=== PATIENT | female | born 1975 | race Caucasian/White ===

== ENCOUNTER 2017-09-04 17:29 | Emergency (ER) | payer OTHER ==
[2017-09-04] MEDS: DEXAMETHASONE 10 MG/ML 1 ML INJ IM (19:27)
[2017-09-04] MEDS: ALBUTEROL 0.083% (NEB) 2.5 MG/3 ML AMP NEB (19:34)
[2017-09-04] MEDS: IPRATROPIUM (NEB) 0.5 MG/2.5 ML AMP INH (21:29)
[2017-09-04] MEDS: ALBUTEROL 0.5% (NEB) 2.5 MG/0.5 ML AMP INH (21:29)
== END 2017-09-04 23:09 | disposition home or self-care (01) ==
LOC: FTE 17:29
DX: J20.9 Acute bronchitis, unspecified (principal)
CPT/HCPCS: 71045; 94644; 94664; 96372; 99284-25

== ENCOUNTER 2017-09-25 16:35 | Emergency (ER) | payer OTHER ==
[2017-09-25] MEDS: DIPHTH/TET/ACEL PERTUSS (ADULT) 0.5 ML VIAL IM* (20:03)
[2017-09-25] MEDS ORDERED: LIDOCAINE 1% (MDV) 20 ML INJ SC (20:30)
[2017-09-25] MEDS: LIDOCAINE 1% (MDV) 10 ML INJ INJ (20:33)
[2017-09-25] MEDS: IBUPROFEN 600 MG TAB PO (20:33)
== END 2017-09-25 20:50 | disposition home or self-care (01) ==
LOC: FTE 16:35
DX: S61.012A Laceration without foreign body of left thumb without damage to nail, initial encounter (principal); W26.8XXA Contact with other sharp object(s), not elsewhere classified, initial encounter; Y92.9 Unspecified place or not applicable; Z23 Encounter for immunization
CPT/HCPCS: 12001; 90471; 90715; 99283-25